=== PATIENT | male | born 1970 | race Caucasian/White ===

== ENCOUNTER 2017-09-30 01:56 | Emergency (ER) | payer SELFPAY ==
[2017-09-30] MEDS ORDERED: Sodium Chloride 0.9% 1,000 ML IV STA ×3 (02:37→06:14)
--- NOTE | 2017-09-30 02:46 | ED PDOC ---
HPI: Psych/Substance Abuse Time Seen by Provider: 09/30/17 02:05 Chief Complaint (Nursing): Alcohol Ingestion Chief Complaint (Provider): Alcohol Ingestion ED Caveat: Intoxicated, Uncooperative History Per: Patient History/Exam Limitations: intoxication Involuntary Hold By: Emergency Physician Additional Complaint(s): Francisco Conner is a 47 y/o male who was brought into the ED for public intoxication. Patient is too intoxicated to respond to any questions. Past Medical History Reviewed: Historical Data, Nursing Documentation, Vital Signs Vital Signs: Last Vital Signs Temp 97.5 F L 09/30/17 02:08 Pulse 130 H 09/30/17 02:08 Resp 16 09/30/17 02:08 BP 108/72 09/30/17 02:08 Pulse Ox 95 09/30/17 02:08 - Family History Family History: States: Unknown Family Hx - Allergies Allergies/Adverse Reactions: Allergies Allergy/AdvReac Type Severity Reaction Status Date / Time Unobtainable Allergy Verified 09/30/17 02:12 Review of Systems Review Of Systems: ROS cannot be obtained secondary to pt's inabilty to answer questions. Physical Exam - Reviewed Nursing Documentation Reviewed: Yes Vital Signs Reviewed: Yes - Physical Exam Appears: Positive for: Non-toxic, No Acute Distress Head Exam: Positive for: NORMOCEPHALIC. Negative for: ATRAUMATIC (right scalp abrasion is noted) Skin: Positive for: Normal Color, Warm, Dry Eye Exam: Positive for: Normal appearance, EOMI, PERRL Neck: Positive for: Normal, Painless ROM, Supple Cardiovascular/Chest: Positive for: Regular Rate, Rhythm, Tachycardia. Negative for: Murmur Respiratory: Positive for: Normal Breath Sounds. Negative for: Respiratory Distress Gastrointestinal/Abdominal: Positive for: Normal Exam, Soft. Negative for: Tenderness Back: Positive for: Normal Inspection. Negative for: L CVA Tenderness, R CVA Tenderness Rectal: Positive for: Stool Is Heme: Extremity: Negative for: Pedal Edema, Deformity Neurologic/Psych: Positive for: Other (slurred speech). Negative for: Motor/ Sensory Deficits - Laboratory Results Result Diagrams: 09/30/17 02:46 09/30/17 02:46 - ECG O2 Sat by Pulse Oximetry: 95 (RA) Pulse Ox Interpretation: Normal Medical Decision Making Medical Decision Making: Time: 02:13 Impression: 47 y/o intoxicated male Initial Plan: --Alcohol serum --CMP --Drug screen --CBC w/ differential --Glucose POC Labs reviewed sig for elevated BAL and hyperglycemia; pt unable to answer questions regarding PMHX including if hx of DM; IV NS ordered Time: 04:52 --Patient is agitated and highly uncooperative and is at high risk for self injury and hurting others. --Patient is held back by 5 mg Haldol IM and 2 mg Ativan IV. --Patient is placed on 1:1 observation. Time: 05:00 CT Head FINDINGS: Brain: Minimal patchy periventricular hypodensity. No hemorrhage. No significant white matter disease. Ventricles: Unremarkable. No ventriculomegaly. Bones/joints: Unremarkable. No acute fracture. Soft tissues: Unremarkable. Sinuses: Minimal patchy sinus disease. Mastoid air cells: Unremarkable. No mastoid effusion. Orbits: The visualized portions of globe and lens are intact. IMPRESSION: No evidence of an acute intracranial hemorrhage, midline shift or mass effect is identified. Time: 05:04 --Patient is still agitated and remains uncooperative. 4 point restraints ordered for patient safety Time: 07:00 Patient will be signed out to Dr. Gold pending clinical sobriety and reevaluation as well as serial accuchecks and determination of possible new onset diabetes Scribe Attestation: Documented by Kane Layne, acting as a scribe for Prashanth Humphrey MD. Provider Scribe Attestation: All medical record entries made by the Scribe were at my direction and personally dictated by me. I have reviewed the chart and agree that the record accurately reflects my personal performance of the history, physical exam, medical decision making, and the department course for this patient. I have also personally directed, reviewed, and agree with the discharge instructions and disposition. Disposition - Clinical Impression Clinical Impression: Alcohol abuse with intoxication delirium, Hyperglycemia - Patient ED Disposition Is Patient to be Admitted: Transfer of Care - Disposition Disposition: Transfer of Care Disposition Time: 07:00 Condition: FAIR Forms: [facility] (Syrian) Patient Signed Over To: Harsh Gold III Handoff Comments: pending clinical sobriety and reevaluation
[2017-09-30 02:49] LABS: BASO # 0.1 K/uL (0.0-0.2); BASO % 1.2 % (0.0-2.0); EOS # 0.1 K/uL (0.0-0.7); EOS % 0.7 % (0.0-4.0); HEMOGLOBIN 16.8 g/dL (12.0-18.0); LYMPH # 4.3 K/uL (1.0-4.3); LYMPH % 45.1 % (20.0-40.0); MEAN CELL VOLUME 100.1 fl (80.0-94.0); MEAN CORPUSCULAR HEMOGLOBIN 34.9 pg (27.0-31.0); MEAN CORPUSCULAR HGB CONC 34.8 g/dL (33.0-37.0); MEAN PLATELET VOLUME 8.1 fl (7.2-11.7); MONO # 0.8 K/uL (0.0-0.8); MONO % 8.3 % (0.0-10.0); NEUT # 4.3 K/uL (1.8-7.0); NEUT % 44.7 % (50.0-75.0); RBC 4.82 Mil/uL (4.40-5.90); RED CELL DISTRIBUTION WIDTH 12.2 % (11.5-14.5); WHITE BLOOD COUNT 9.6 K/uL (4.8-10.8)
[2017-09-30 03:01] LABS: ALB/GLOB RATIO 1.1 (1.0-2.1); ALBUMIN 4.3 g/dL (3.5-5.0); ALT/SGPT 108 U/L (21-72); AST/SGOT 135 U/L (17-59); BLOOD UREA NITROGEN 12 mg/dl (9-20); CALCIUM 9.6 mg/dL (8.4-10.2); GFR AFRICAN-AMERICAN > 60; GFR NON-AFRICAN AMERICAN > 60
[2017-09-30 05:10] VITALS: TEMP 98.7
[2017-09-30 09:59] LABS: BLOOD UREA NITROGEN 10 mg/dl (9-20); CALCIUM 8.5 mg/dL (8.4-10.2); GFR AFRICAN-AMERICAN > 60; GFR NON-AFRICAN AMERICAN > 60
--- NOTE | 2017-09-30 11:48 | CT ---
Date of service: 09/30/2017 PROCEDURE: CT HEAD WITHOUT CONTRAST. HISTORY: head injury COMPARISON: None available. TECHNIQUE: Axial computed tomography images were obtained through the head/brain without intravenous contrast. Radiation dose: Total exam DLP = 1136.86 mGy-cm. This CT exam was performed using one or more of the following dose reduction techniques: Automated exposure control, adjustment of the mA and/or kV according to patient size, and/or use of iterative reconstruction technique. FINDINGS: HEMORRHAGE: No intracranial hemorrhage. BRAIN: Normal finch-white matter differentiation and density are appreciated throughout the cerebrum and cerebellum with the brainstem appearing unremarkable as well. There is no mass effect. There is no suspicious extra-axial fluid collection and the midline brain anatomy appears diffusely unremarkable. VENTRICLES: Unremarkable. No hydrocephalus. CALVARIUM: No destructive bony lesion or displaced fracture identified including through the skullbase. PARANASAL SINUSES: Unremarkable as visualized. No significant inflammatory changes. MASTOID AIR CELLS: Unremarkable as visualized. No inflammatory changes. OTHER FINDINGS: None. IMPRESSION: Normal CT of the Head. Concordant preliminary report from [facility], 09/30/2017.
[2017-09-30 13:02] LABS: BARBITURATES, UR NEGATIVE (NEGATIVE); BENZODIAZEPINES, UR NEGATIVE (NEGATIVE); OPIATES, UR NEGATIVE (NEGATIVE); PHENCYCLIDINE, UR NEGATIVE (NEGATIVE)
--- NOTE | 2017-09-30 13:12 | ED PDOC ---
- Laboratory Results Result Diagrams: 09/30/17 02:46 09/30/17 09:28 - ECG O2 Sat by Pulse Oximetry: 95 Medical Decision Making Medical Decision Making: recd 7am pending repeat chem and sobriety over course of morning patient gradually regained sobriety to baseline, awake 1pm without complaints. Repeat BMP improved acidosis resolved. gluc remains elevated 220s, patient denies hx diabetes, explained results and need for followup and DM workup Disposition Counseled Patient/Family Regarding: Studies Performed, Diagnosis, Need For Followup - Clinical Impression Clinical Impression: Alcohol abuse with intoxication delirium, Hyperglycemia - POA Present On Arrival: Poor Glycemic Control - Disposition Disposition: Routine/Home Disposition Time: 13:00 Condition: FAIR Additional Instructions: Have your doctor check your blood sugar levels, you may have diabetes as your sugar was elevated today. Avoid drinking alcohol in large quantities. Instructions: Alcohol Use - When Is Drinking a Problem?, Hyperglycemia, Adult, Diabetes and Diet Forms: [facility] (Czech)
[2017-09-30 13:23] VITALS: BP 126/75; PULSE 94; RESP 18
[2017-09-30 13:46] VITALS: O2SAT 99
== END 2017-09-30 13:30 | disposition home or self-care (01) ==
LOC: H.ER 01:56
DX: F10.129 Alcohol abuse with intoxication, unspecified (principal); S09.90XA Unspecified injury of head, initial encounter; W19.XXXA Unspecified fall, initial encounter; Y92.89 Other specified places as the place of occurrence of the external cause; R73.9 Hyperglycemia, unspecified
CPT/HCPCS: 70450; 80048; 80053; 82948; 85025; 96361; 96372; 96374; 99285; G0480; J1630; J2060; J7030